=== PATIENT | male | born 1940 | race Caucasian/White ===

== ENCOUNTER 2021-01-30 22:23 | Emergency (ER) | payer OTHER ==
[~2021-01-30 22:23] MED LIST: ALLOPURINOL100 MG PO; CALCIUM600 MG PO; LEVAQUIN750 MG PO; LOPID TAB 600600 MG PO; MAXIMUM RED KR1 EACH PO; NORCO 5-325 TA1 EACH PO; NORCO 7.5-3251 EACH PO; OS-CAL 500+D31 EACH PO; THERAGRAN M TAB1 EA PO; VITAMIN D3400 UNI1 PO
[2021-01-30] MEDS ORDERED: CEPHALEXIN500 MG PO (23:20)
== END 2021-01-30 23:45 | disposition home or self-care (01) ==
LOC: ER1 22:23
DX: S80.852A Superficial foreign body, left lower leg, initial encounter (principal); E78.5 Hyperlipidemia, unspecified; W45.8XXA Other foreign body or object entering through skin, initial encounter
CPT/HCPCS: 10120; 99283

== ENCOUNTER 2021-04-11 13:14 | Emergency (ER) | payer OTHER ==
[~2021-04-11 13:14] MED LIST changes: +CEPHALEXIN500 MG PO
[2021-04-11 15:44] LABS: HEMOGLOBIN 11.4 gm/dl (14.0-17.5); RED BLOOD COUNT 4.03 M/UL (4.20-5.50)
[2021-04-11 16:00] LABS: BUN/CREATININE RATIO 23 (0-10)
[2021-04-11 16:31] LABS: WHITE BLOOD COUNT 1.1 K/UL (4.5-11.0)
== END 2021-04-11 17:15 | disposition home or self-care (01) ==
LOC: ER1 13:14
PROVIDERS: Student in an Organized Health Care Education/Training Program
DX: R33.9 Retention of urine, unspecified (principal); D70.1 Agranulocytosis secondary to cancer chemotherapy; C76.0 Malignant neoplasm of head, face and neck
CPT/HCPCS: 51702; 51798; 80048; 81001; 85025; 99283

== ENCOUNTER → 2021-06-08 | Outpatient (CLI) | payer OTHER ==
[2021-06-08 10:20] LABS: HEMOGLOBIN 12.5 gm/dl (14.0-17.5); RED BLOOD COUNT 3.9 M/UL (4.20-5.50); WHITE BLOOD COUNT 4.2 K/UL (4.5-11.0)
[2021-06-08 10:53] LABS: BUN/CREATININE RATIO 14 (0-10)
== END ==
LOC: CT 06-06 09:30
PROVIDERS: Internal Medicine Hematology & Oncology
DX: C07 Malignant neoplasm of parotid gland (principal); R91.8 Other nonspecific abnormal finding of lung field
CPT/HCPCS: 36415; 70491; 71260; 80053; 83615; 85025; Q9967

== ENCOUNTER 2021-06-15 13:45 | Inpatient (IN) | payer OTHER ==
[~2021-06-15] VITALS: Ht 167.6 cm; Wt 59.0 kg
[~2021-06-15 13:45] MED LIST changes: +DOXYCYCLINE HY100 MG PO
[2021-06-15 14:26] LABS: HEMOGLOBIN 11.8 gm/dl (14.0-17.5); RED BLOOD COUNT 3.65 M/UL (4.20-5.50); WHITE BLOOD COUNT 5.7 K/UL (4.5-11.0)
[2021-06-15 19:18] LABS: BUN/CREATININE RATIO 17 (0-10)
[2021-06-15 22:32] LABS: BUN/CREATININE RATIO 14 (0-10)
--- NOTE | 2021-06-15 22:53 | NUR ---
2049 NS 500CC BOLUS STARTED. 2051 LAB ORDER FOR BMP PLACED FOR 14.
[2021-06-16 02:53] LABS: HEMOGLOBIN 11.3 gm/dl (14.0-17.5); RED BLOOD COUNT 3.55 M/UL (4.20-5.50); WHITE BLOOD COUNT 4.3 K/UL (4.5-11.0)
[2021-06-16 03:08] LABS: BUN/CREATININE RATIO 14 (0-10)
[2021-06-16 07:54] LABS: BUN/CREATININE RATIO 15 (0-10)
[2021-06-16] MEDS ORDERED: MEGACE 400400 MG/10 PO (10:38)
[2021-06-16] MEDS ORDERED: FLOMAX 0.4 MG0.4 MG PO (10:38)
[2021-06-16] MEDS ORDERED: AKWA TEARS OIN3.5 GM EYERT (10:39)
[2021-06-16] MEDS ORDERED: REFRESH TEARS15 ML EYERT (10:40)
[2021-06-16 13:18] LABS: BUN/CREATININE RATIO 13 (0-10)
[2021-06-16 20:23] LABS: BUN/CREATININE RATIO 16 (0-10)
[2021-06-17 06:38] LABS: HEMOGLOBIN 11.7 gm/dl (14.0-17.5); RED BLOOD COUNT 3.73 M/UL (4.20-5.50); WHITE BLOOD COUNT 3.4 K/UL (4.5-11.0)
[2021-06-17 07:15] LABS: BUN/CREATININE RATIO 13 (0-10)
[2021-06-17] MEDS ORDERED: ENSURE HIGH PR237 ML PO (12:51)
[2021-06-17 13:18] LABS: BUN/CREATININE RATIO 13 (0-10)
[2021-06-17] MEDS ORDERED: SODIUM CHLORIDE1 G1 PO ×3 (18:34→19:45)
[2021-06-17 19:07] LABS: BUN/CREATININE RATIO 14 (0-10)
== END 2021-06-17 19:43 | disposition home or self-care (01) | DRG 644 ==
LOC: ER1 13:45 → CDU 17:21 → MED SURG 4 18:05
PROVIDERS: Physician Assistant; Physician Assistant Medical; ADMIT Internal Medicine
DX: E22.2 Syndrome of inappropriate secretion of antidiuretic hormone (principal); C34.11 Malignant neoplasm of upper lobe, right bronchus or lung; E44.1 Mild protein-calorie malnutrition; Z20.822 Contact with and (suspected) exposure to COVID-19; C44.92 Squamous cell carcinoma of skin, unspecified; E78.5 Hyperlipidemia, unspecified; M06.9 Rheumatoid arthritis, unspecified; M10.9 Gout, unspecified; R26.89 Other abnormalities of gait and mobility; Z98.41 Cataract extraction status, right eye; Z85.828 Personal history of other malignant neoplasm of skin; Z98.890 Other specified postprocedural states; Z80.1 Family history of malignant neoplasm of trachea, bronchus and lung; Z79.899 Other long term (current) drug therapy; Z68.22 Body mass index [BMI] 22.0-22.9, adult
CPT/HCPCS: 36415; 70450; 70553; 71045; 80048; 80053; 82436; 82550; 82553; 82570; 82728; 83735; 83874; 83935; 84133; 84300; 84439; 84443; 84484; 85025; 85027; 86140; 99285; A9577; J1650; U0002

== ENCOUNTER → 2021-06-20 | Outpatient (CLI) | payer OTHER ==
[~2021-06-20] MED LIST changes: +AKWA TEARS OIN3.5 GM EYERT; +ENSURE HIGH PR237 ML PO; +FLOMAX 0.4 MG0.4 MG PO; +MEGACE 400400 MG/10 PO; +REFRESH TEARS15 ML EYERT; +SODIUM CHLORIDE1 G1 PO
[2021-06-21 09:13] LABS: CALCIUM, SERUM 9.1 mg/dL (8.6-10.2); CREATININE, SERUM 0.59 mg/dL (0.76-1.27); POTASSIUM, SERUM 4.6 mmol/L (3.5-5.2)
== END ==
LOC: LAB 15:35
PROVIDERS: Internal Medicine
DX: N17.9 Acute kidney failure, unspecified (principal)
CPT/HCPCS: 36415; 80048

== ENCOUNTER 2021-07-01 21:43 | Inpatient (IN) | payer OTHER ==
[~2021-07-01] VITALS: Ht 165.1 cm; Wt 59.6 kg
[2021-07-01 22:04] LABS: HEMOGLOBIN 12.6 gm/dl (14.0-17.5); RED BLOOD COUNT 3.99 M/UL (4.20-5.50); WHITE BLOOD COUNT 10.5 K/UL (4.5-11.0)
[2021-07-01 22:24] LABS: BUN/CREATININE RATIO 23 (0-10)
[2021-07-02 08:19] LABS: HEMOGLOBIN 11.4 gm/dl (14.0-17.5); RED BLOOD COUNT 3.73 M/UL (4.20-5.50); WHITE BLOOD COUNT 8.2 K/UL (4.5-11.0)
[2021-07-02 08:20] LABS: BUN/CREATININE RATIO 23 (0-10)
[2021-07-03 05:42] LABS: BUN/CREATININE RATIO 38 (0-10)
[2021-07-03 05:45] LABS: HEMOGLOBIN 9.8 gm/dl (14.0-17.5)
[2021-07-03 05:51] LABS: RED BLOOD COUNT 3.22 M/UL (4.20-5.50); WHITE BLOOD COUNT 0.5 K/UL (4.5-11.0)
[2021-07-03 13:11] LABS: HEMOGLOBIN 10.6 gm/dl (14.0-17.5); RED BLOOD COUNT 3.36 M/UL (4.20-5.50)
[2021-07-03 13:23] LABS: WHITE BLOOD COUNT 0.6 K/UL (4.5-11.0)
[2021-07-05] MEDS ORDERED: TRANSDERM-SCOP1 EACH TOP (11:05)
[2021-07-05] MEDS ORDERED: ATIVAN0.5 MG PO ×2 (11:05→11:21)
[2021-07-05] MEDS ORDERED: ROXANOL SOLN20 MG/M1 PO (11:05)
== END 2021-07-05 13:43 | DRG 843 ==
LOC: ER1 21:43 → CCU 23:20 → CDU 23:20 → PROG CARE 23:20 → CCU 07-02 17:12
PROVIDERS: Emergency Medicine; Internal Medicine; Internal Medicine Infectious Disease; ADMIT Internal Medicine
PROC: 5A09457 Assistance with Respiratory Ventilation, 24-96 Consecutive Hours, Continuous Positive Airway Pressure (ICD-10-PCS; principal; 2021-07-02)
PROC: 3E033XZ Introduction of Vasopressor into Peripheral Vein, Percutaneous Approach (ICD-10-PCS; 2021-07-03)
PROC: 8E0ZXY6 Isolation (ICD-10-PCS; 2021-07-04)
DX: C79.89 Secondary malignant neoplasm of other specified sites (principal); R57.8 Other shock; J96.01 Acute respiratory failure with hypoxia; J15.9 Unspecified bacterial pneumonia; J96.02 Acute respiratory failure with hypercapnia; J69.0 Pneumonitis due to inhalation of food and vomit; U07.1 COVID-19; E22.2 Syndrome of inappropriate secretion of antidiuretic hormone; E44.0 Moderate protein-calorie malnutrition; J90 Pleural effusion, not elsewhere classified; C78.00 Secondary malignant neoplasm of unspecified lung; D70.1 Agranulocytosis secondary to cancer chemotherapy; T45.1X5A Adverse effect of antineoplastic and immunosuppressive drugs, initial encounter; R13.10 Dysphagia, unspecified; Z66 Do not resuscitate; F41.9 Anxiety disorder, unspecified; R45.1 Restlessness and agitation; I95.9 Hypotension, unspecified; E78.5 Hyperlipidemia, unspecified; Z98.49 Cataract extraction status, unspecified eye; Z98.890 Other specified postprocedural states; Z83.6 Family history of other diseases of the respiratory system; Z98.41 Cataract extraction status, right eye; Z90.89 Acquired absence of other organs; Z79.899 Other long term (current) drug therapy; Z92.3 Personal history of irradiation; Z92.21 Personal history of antineoplastic chemotherapy; Z51.5 Encounter for palliative care; Z68.21 Body mass index [BMI] 21.0-21.9, adult
CPT/HCPCS: 0240U; 36415; 36600; 71045; 71250; 80048; 80053; 82140; 82803; 82962; 83605; 83735; 83880; 84100; 85025; 85027; 87040; 93005; 94640; 94660; 94664; 94760; 96365; 96366; 96375; 99285; J0456; J0692; J0696; J1650; J1940; J2060; J2185; J2930; J3370; J3475; J7030; J7070